=== PATIENT | female | born 1990 | race Two or more races ===

== ENCOUNTER 2019-02-19 17:58 | Inpatient (IN) | payer OTHER ==
[~2019-02-19] VITALS: Ht 160 cm; Wt 81.6 kg
[~2019-02-19 17:58] MED LIST: CITRANATAL B-C1 EAC1
== END 2019-02-21 13:14 | disposition home or self-care (01) | DRG 833 ==
LOC: OBS/DEL 17:58 → LDR 02-20 11:20
PROVIDERS: ADMIT Obstetrics & Gynecology Obstetrics
PROC: 4A1HXCZ Monitoring of Products of Conception, Cardiac Rate, External Approach (ICD-10-PCS; principal; 2019-02-20)
DX: O47.02 False labor before 37 completed weeks of gestation, second trimester (principal); Z34.82 Encounter for supervision of other normal pregnancy, second trimester

== ENCOUNTER 2019-03-18 13:37 | Inpatient (IN) | payer OTHER ==
[~2019-03-18] VITALS: Ht 157.5 cm; Wt 81.2 kg
== END 2019-03-20 16:45 | disposition home or self-care (01) | DRG 833 ==
LOC: OBS/DEL 13:37 → LDR 03-19 16:41
PROVIDERS: ADMIT Obstetrics & Gynecology Obstetrics
PROC: 4A1HXCZ Monitoring of Products of Conception, Cardiac Rate, External Approach (ICD-10-PCS; principal; 2019-03-19)
DX: O47.03 False labor before 37 completed weeks of gestation, third trimester (principal); Z34.83 Encounter for supervision of other normal pregnancy, third trimester

== ENCOUNTER 2019-04-05 09:44 | Inpatient (IN) | payer OTHER ==
[~2019-04-05] VITALS: Ht 152.4 cm; Wt 81.6 kg
== END 2019-04-06 13:51 | disposition home or self-care (01) | DRG 832 ==
LOC: OBS/DEL 09:44 → LDR 16:55
PROVIDERS: ADMIT Obstetrics & Gynecology Obstetrics
PROC: 4A1HXCZ Monitoring of Products of Conception, Cardiac Rate, External Approach (ICD-10-PCS; principal; 2019-04-05)
DX: O47.03 False labor before 37 completed weeks of gestation, third trimester (principal); O23.33 Infections of other parts of urinary tract in pregnancy, third trimester; Z34.83 Encounter for supervision of other normal pregnancy, third trimester

== ENCOUNTER 2019-04-27 22:32 | Inpatient (IN) | payer OTHER ==
[~2019-04-27] VITALS: Ht 152.4 cm; Wt 81.6 kg
== END 2019-04-29 21:42 | disposition home or self-care (01) | DRG 832 ==
LOC: OBS/DEL 22:32 → LDR 04-28 14:23 → OBS/DEL 04-28 14:23 → LDR 04-29 21:42
PROVIDERS: ADMIT Obstetrics & Gynecology Obstetrics
PROC: 4A1HXCZ Monitoring of Products of Conception, Cardiac Rate, External Approach (ICD-10-PCS; principal; 2019-04-28)
DX: O47.03 False labor before 37 completed weeks of gestation, third trimester (principal); O23.33 Infections of other parts of urinary tract in pregnancy, third trimester; Z34.83 Encounter for supervision of other normal pregnancy, third trimester

== ENCOUNTER 2019-05-24 02:14 | Inpatient (IN) | payer OTHER ==
[~2019-05-24] VITALS: Ht 154.9 cm; Wt 83.9 kg
== END 2019-05-26 13:06 | disposition home or self-care (01) | DRG 807 ==
LOC: OBS/DEL 02:14 → OB/GYN 04:56 → LDR 04:56 → OB/GYN 11:17
PROVIDERS: ADMIT Obstetrics & Gynecology Obstetrics
PROC: 10E0XZZ Delivery of Products of Conception, External Approach (ICD-10-PCS; principal; 2019-05-24)
PROC: 10907ZC Drainage of Amniotic Fluid, Therapeutic from Products of Conception, Via Natural or Artificial Opening (ICD-10-PCS; 2019-05-24)
PROC: 4A1HXCZ Monitoring of Products of Conception, Cardiac Rate, External Approach (ICD-10-PCS; 2019-05-24)
DX: O80 Encounter for full-term uncomplicated delivery (principal); Z37.0 Single live birth; Z3A.39 39 weeks gestation of pregnancy

== ENCOUNTER 2020-11-13 08:52 | Inpatient (IN) | payer OTHER ==
[~2020-11-13] VITALS: Ht 185.4 cm; Wt 86.2 kg
== END 2020-11-15 16:13 | disposition home or self-care (01) | DRG 745 ==
LOC: CIR.AMB 08:52 → OB/GYN 21:38
PROVIDERS: ADMIT Obstetrics & Gynecology Obstetrics; ATTEND Obstetrics & Gynecology Obstetrics
PROC: 0UB70ZZ Excision of Bilateral Fallopian Tubes, Open Approach (ICD-10-PCS; principal; 2020-11-13 11:15)
DX: Z30.2 Encounter for sterilization (principal); Z64.1 Problems related to multiparity